=== PATIENT | female | born 1995 | race Two or more races ===

== ENCOUNTER 2022-01-01 00:14 | Emergency (ER) | payer OTHER ==
[~2022-01-01] VITALS: Ht 284.5 cm; Wt 71.2 kg
[2022-01-01] MEDS ORDERED: ZOFRAN8 MG PO (04:07)
[2022-01-01] MEDS ORDERED: PEPCID40 MG PO (04:07)
== END 2022-01-01 04:21 ==
LOC: ER 00:14
DX: R11.10 Vomiting, unspecified (principal)